=== PATIENT | male | born 2000 | race Caucasian/White ===

== ENCOUNTER 2023-06-24 11:32 | Emergency (ER) | payer OTHER ==
[~2023-06-24] VITALS: Ht 167.6 cm; Wt 90.9 kg
[~2023-06-24 11:32] MED LIST: NO MEDS
[2023-06-24 11:38] VITALS: TEMP 98
[2023-06-24] MEDS ORDERED: ESCI20TA87 PO (11:41)
[2023-06-24] MEDS ORDERED: TRET20CR32 TP (11:41)
[2023-06-24] MEDS ORDERED: PHEN1CPM3 PO (11:41)
[2023-06-24] MEDS ORDERED: CETI5TAB20 PO (11:41)
[2023-06-24] MEDS ORDERED: CYCL-448 PO (12:36)
[2023-06-24] MEDS ORDERED: IBUP-1492 PO (12:36)
[2023-06-24 12:45] VITALS: BP 122/80; PULSE 70; RESP 12
== END 2023-06-24 12:57 | disposition home or self-care (01) ==
LOC: EMS 11:36
DX: M54.50 Low back pain, unspecified (principal); Z98.890 Other specified postprocedural states
CPT/HCPCS: 99283; Z7502